=== PATIENT | female | born 1945 | race African-American/Black ===

== ENCOUNTER 2022-01-12 08:09 | Outpatient (CLI) | payer MEDICARE ==
[2022-01-12 09:04] LABS: Blood Urea Nitrogen 14 mg/dL (7-17)
--- NOTE | 2022-01-12 15:34 | Cat Scan Report ---
CT angio neck INDICATION / CLINICAL INFORMATION: 76 years Female; I65.29 carotid artery stenosis. TECHNIQUE: Thin cut axial images obtained through the head during IV bolus contrast administration. S agittal, coronal, and 3 plane MIP reconstructions performed by the technologist. NASCET type criteria used evaluate stenoses. All CT scans at this location are performed using CT dose reduction for ALAR A by means of automated exposure control. . Motion artifact present. COMPARISON: None available. FINDINGS: ARCH: Normal aortic arch branching suggested. CAROTID ARTERIES: R CCA: No significant abnormality. R ICA: Significant atherosclerotic disease is seen at the origin of the vessel in the region of the bulb resulting in approximately 90% diameter stenosis. Correlation with carotid Doppler analysis may be of benefit. L CCA: No significant abnormality. L ICA: Mild atherosclerotic disease is seen at the origin of the left internal carotid artery-not fe lt to be hemodynamically significant. VERTEBRAL ARTERIES: Codominant vertebral system seen. Mild narrowing of the origin of these vessels c annot entirely be excluded, although these regions are difficult to evaluate because of motion artifa ct. Remainder of the extra cranial vessels appear to be widely patent. Mild narrowing is seen near th e foramen magnum region of both vessels-not felt to be hemodynamically significant. ADDITIONAL FINDINGS: Mild degenerative changes of the cervical spine seen. Mild osseous foraminal sherie rowing seen on the left at C5-6 and C6-7 from uncinate hypertrophy. Disc space narrowing seen from C4 -5 through C6-7. No definitive signs of significant canal stenosis appreciated. There is significant opacification of the mastoid air cells on the right, as well as a small portion of the middle ear cavity. Mild mucosal thickening seen in the left mastoids. IMPRESSION: 1. Hemodynamically significant narrowing seen at the origin of the right internal carotid artery. Rec ommend correlation with carotid Doppler analysis. 2. Areas of mild narrowing in the vertebral arteries, as described above. Signer Name: Nikita Neri MD, III Signed: 01/12/2022 3:29 PM Workstation Name: [id number]
== END 2022-01-12 08:10 | disposition home or self-care (01) ==
LOC: CT 08:09
PROVIDERS: ATTEND Internal Medicine
DX: I65.21 Occlusion and stenosis of right carotid artery (principal); I65.09 Occlusion and stenosis of unspecified vertebral artery; M47.812 Spondylosis without myelopathy or radiculopathy, cervical region
CPT/HCPCS: 36415; 70498; 82565; 84520; Q9967